=== PATIENT | male | born 1940 | race Caucasian/White ===

== ENCOUNTER 2017-07-03 20:47 | Observation (INO) | payer MEDICARE, OTHER ==
[~2017-07-03] VITALS: Ht 167.6 cm; Wt 67.3 kg
[2017-07-03 20:51] VITALS: BP 144/79
[2017-07-03] MEDS ORDERED: HYDROCHLOROTHIA25 M1 PO (20:59)
[2017-07-03] MEDS ORDERED: LISINOPRIL20 MG PO (21:00)
[2017-07-03] MEDS ORDERED: ATORVASTATIN CA80 MG PO (21:01)
[2017-07-03] MEDS ORDERED: CARVEDILOL 1212.5 MG PO (21:01)
[2017-07-03] MEDS ORDERED: CLOPIDOGREL75 M2 PO (21:01)
[2017-07-03] MEDS ORDERED: DULOXETINE60 MG PO (21:02)
[2017-07-03] MEDS ORDERED: ASPIRIN 81MG TA81 MG PO (21:03)
[2017-07-03] MEDS ORDERED: BUPROPION HCL150 M1 PO (21:03)
--- OUTSIDE RECORDS SUMMARY | 2017-07-03 21:08 | External Medical Summary Rpt ---
Author Author PANTERA Marinelli, [employer] Organization [employer] Address Unknown Phone Unavailable
--- OUTSIDE RECORDS SUMMARY | 2017-07-03 21:08 | External Medical Summary Rpt | CCD ---
Author Author , PANTEAR MOTT Address Unknown Phone [email or web address] Purpose Continuity of Care Document - through 2016
--- OUTSIDE RECORDS SUMMARY | 2017-07-03 21:08 | External Medical Summary Rpt | CCD ---
Author Author [employer] Organization [employer] Address Unknown Phone Unavailable Purpose Continuity of Care Document - through 2016
--- OUTSIDE RECORDS SUMMARY | 2017-07-03 21:08 | External Medical Summary Rpt | CCD ---
Author Author , YENI MOTT Address Unknown Phone [email or web address] Immunization Name Date Rout CVX Reac Dose Comm Prov Is Faci e tion ent ider Refu lity Give sed n Infl 09-2 Intr 999 Hist PD20 No PD20 uenz 3-20 amus oric 255 255 a 17 cula al Quad r Info rmat W/Pr ion es - Sour ce Unsp ecif ied
--- OUTSIDE RECORDS SUMMARY | 2017-07-03 21:08 | External Medical Summary Rpt | CCD ---
Author Author , PANTERA MOTT Address Unknown Phone [email or web address] Purpose Continuity of Care Document - through 2016
--- OUTSIDE RECORDS SUMMARY | 2017-07-03 21:08 | External Medical Summary Rpt | CCD ---
Author Author , YENI MOTT Address Unknown Phone [email or web address] Immunization Name Date Rout CVX Reac Dose Comm Prov Is Faci e tion ent ider Refu lity Give sed n Infl 09-2 Intr 999 Hist PD20 No PD20 uenz 3-20 amus oric 255 255 a 17 cula al Quad r Info rmat W/Pr ion es - Sour ce Unsp ecif ied
[2017-07-03 21:32] LABS: HEMOGLOBIN 15.1 g/dL (14.1-18.0)
[2017-07-03 21:34] LABS: LYMPH # 0.6 K/mm3 (0.7-4.5); LYMPH % 9.4 % (10-50)
[2017-07-03 21:49] LABS: BUN 16 mg/dL (7-18)
[2017-07-03 21:56] LABS: GFR (ESTIMATED) 65 ML/MIN (>60)
--- NOTE | 2017-07-03 22:44 | Emergency Room Report ---
History of Present Illness Time Seen by 2055 Presenting Problem in Triage Pt arrived:Wheelchair Presenting Problem:C/O FLU LIKE SYMPTOMS,WEAKNESS,COUGH AND CONGESTION SINCE THIS AM.STATES HE JUST ISNT HIMSELF. 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 N Clinical Suspician of Infection? Y Mental Status: 1 - Regular (Normal Baseline) Sepsis Risk:Low Sepsis Risk Have you (or family members/close friends) recently traveled outside the [place]? N If Yes, where/when: Have you had exposure to infectious disease within the past month? N TB? Other? 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 over the last 24 hrs with no rash but has unsteady gait and had fall and change in mental status - pt confused - Cardiac Chest Pain Chest pain indicative of cardiac No Timing/Duration this evening Severity moderate ALLERGIES Coded Allergies: No Known Allergies (07/03/17) Home Medications Reported Medications HYDROCHLOROTHIAZIDE (Hydrochlorothiazide) 25 MG PO DAILY #90 Lisinopril 10 MG PO BID #90 Carvedilol (Carvedilol 12.5MG) 12.5 MG PO BID #180 Atorvastatin Calcium 80 MG PO DAILY #90 CLOPIDOGREL BISULFATE (Clopidogrel) 75 MG PO DAILY #90 TAB DULOXETINE HCL (Duloxetine) 60 MG PO DAILY #90 Bupropion Hcl (Bupropion HCl Sr) 150 MG PO DAILY #90 ASPIRIN (Aspirin) 81 MG PO DAILY History Medical History General CAD? No Angina: No MT: No Hypertension? Yes Hyperlipidemia? Yes CHF? No DVT? No PE? No COPD? No Asthma? No Anemia? No GERD? No Gastric ulcers? Yes GI Bleed? No Hernia? Yes Thyroid Problems? No Hypothyroidism? No CVA? Yes Seizures? No Diabetes? No Renal Insuffiency? No End Stage Renal Disease? No UTI? No Stones? No BPH? No GB Disease: No Nephritic Syndrome? No Asplenia? No Hepatitis? No Sickle Cell Disease? No Arthritis? Yes Migraines? No Cataracts? Yes Glaucoma? No MRSA? No HIV? No TB? No Anxiety? No Depression? Yes Cancer? Yes Site: PROSTATE Immunization Hx DT/Tetanus Unknown Surgical Hx Previous Surgery?Y HERNIA REPAIR PROSTATE REMOVAL Social History Smoking Hx Smoker: Former Smoker Tobacco: No Alcohol Alcohol: No Drugs none Review of Systems All Other Systems Reviewed and Negative Constitutional see HPI, denies fever, weakness Eyes denies drainage ENT denies: ear discharge, epistaxis, throat pain. Respiratory denies cough, denies shortness of breath, denies wheezing Cardiovascular denies chest pain, denies palpitations, denies syncope Gastrointestinal denies abdominal pain, denies diarrhea, denies vomiting Genitourinary denies: dysuria, frequency, hesitancy, hematuria. Musculoskeletal denies back pain, denies joint pain, denies joint swelling, denies neck pain Skin denies rash Psychiatric/Neurological see HPI, denies headache, denies seizure, weakness Physical Exam Vital Signs Vital Signs Date Time Temp Pulse Resp B/P Pulse O2 O2 Flow FiO2 Ox Delivery Rate 07/03 2051 99.1 85 20 144/79 97 - WBC >12,000 or <4,000 or 10% bands? 2 or more SIRS Criteria Met? B/P:144/79 MAP:100 Creatinine >2.0? UA output<0.5ml/kg/hr for 2 hrs? Platelet count >100,000? Lactate >2.0mmol/1? INR >1.2 or PTT > than 60 sec? Evidence of Organ Dysfunction? Provider documented clinical suspician of infection? Y Sepsis Criteria Count: 1 Sepsis Risk: Low Sepsis Risk General Appearance no apparent distress Eye Exam - bilateral eye PERRL, bilateral eye EOMI Ear, Nose, Throat normal ENT inspection Neck supple Respiratory Status No: respiratory distress. Lung Sounds bilateral: rhonchi. 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 No Results/Orders Laboratory Tests 07/03/17 2306: Urine Color YELLOW, Urine Appearance CLEAR, Urine pH 6.0, Ur Specific [place] 1.020, Urine Protein NEGATIVE, Urine Ketones TRACE H, Urine Blood 2+ H, Urine Nitrate NEGATIVE, Urine Bilirubin NEGATIVE, Urine Urobilinogen 0.2, Ur Leukocyte Esterase NEGATIVE, Urine RBC 3-5, Urine WBC 3-5, Urine Bacteria 1+, Urine Mucus 1+, Urine Glucose 1+ H 07/03/17 2253: Chlamy pneum (TEM-PCR) Pending, Adenovirus (PCR) Pending, B. pertussis DNA (PCR) Pending, Coronavirus OC43 (PCR) Pending, Coronavirus HKU1 (PCR) Pending, Coronavirus 229E (PCR) Pending, Coronavirus NL63 (PCR) Pending, Human Metapneumovir PCR Pending, Influenza A (H1) PCR Pending, Influ A (H1N1/09) PCR Pending, Influenza A (H3) PCR Pending, Influenza Type A (PCR) Pending, Influenza Type B (PCR) Pending, M. pneumoniae (PCR) Pending, Parainfluenza 1 (PCR) Pending , Parainfluenza 2 (PCR) Pending, Parainfluenza 3 (PCR) Pending, Parainfluenza 4 (PCR) Pending, RSV (PCR) Pending, Entero/Rhino (PCR) Pending 07/03/172116: Influenza Type A Ag NOT DETECTED, Influenza Type B Ag NOT DETECTED 07/03/17 2100: Lactic Acid 1.9 07/03/17 2100: Sodium 133 L, Potassium 3.2 L, Chloride 94 L, Carbon Dioxide 29, BUN 16, Creatinine 1.1, Estimated Creat Clear 54, Estimated GFR (MDRD) 65, Glucose 174 H, Calcium 8.9, Total Bilirubin 0.6, AST 20, ALT 33, Alkaline Phosphatase 86, Creatine Kinase 102, CK-MB (CK-2) Rel Index 0.5, CK and CKMB Interp < 0.5, Troponin I < 0.02, Total Protein 7.2, Albumin 3.6, Globulin 3.6 H, Albumin/ Globulin Ratio 1.0 L, WBC 7.6, RBC 4.85, Hgb 15.1, Hct 45.3, MCV 93.3, RDW 13.0 , Plt Count 195, MPV 7.3 L, Gran % 84.7 H, Gran # 6.4, Lymphocytes % 9.4 L, Monocytes % 4.9, Eosinophils % 0.7, Basophils % 0.4, Lymphocytes # 0.6 L, Monocytes # 0.4, Eosinophils # 0.1, Basophils # 0.0, PUBS MCHC 33.3, MCH 31.1 Current Medication Orders Sig/Kadie Start time Last Medication Dose Route Stop Time Status Admin Sodium Chloride 1,000 ML .STK-MED ONE 07/03 2121 DC IV Sodium Chloride 1,000 ML .Q1H1M 07/03 2115 DC 07/03 IV 07/03 Sodium Chloride 10 ML PRN PRN 07/03 2115 AC IV 07/04 2106 Orders Procedure Date/time Status Decision to admit 07/03 2338 Active UPPER RESPIRATORY PANEL, PCR 07/03 2250 Active ELECTROCARDIOGRAM REQUEST 07/03 2106 Active CHEST-PORTABLE 07/03 2106 Active CULTURE, BLOOD 07/03 2106 Active URINALYSIS/COMPLETE 07/03 2106 Complete LACTIC ACID 07/03 2106 Complete INFLUENZA A&B ANTIGENS 07/03 2106 Complete CBC WITH AUTO DIFF 07/03 2106 Complete CARDIAC ENZYMES 07/03 2106 Complete CHEM 12 PROFILE 07/03 2106 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 ST/Twave chgs XRAY/CT/US XRAY/CT/US XRAY chest XR interpretation by reviewed by me Xray Results normal/NAD Departure Departure Time of Disposition 0 Disposition Still a Patient Clinical Impression Primary Impression: Febrile illness, acute Condition STABLE Referrals Gino Todd MD (Family) discussed with dr todd ED Critical Care Critical Care No at 2342
[2017-07-03 23:01] LABS: CORONAVIRUS 229E NOT DETECTED (NOT DETECTE); CORONAVIRUS HKU 1 NOT DETECTED (NOT DETECTE); CORONAVIRUS NL63 NOT DETECTED (NOT DETECTE); RHINOVIRUS/ENTEROVIRUS NOT DETECTED (NOT DETECTE)
[2017-07-03 23:13] LABS: URINE BILIRUBIN - DIPSTICK NEGATIVE (NEG); URINE BLOOD 2+ (NEG)
--- OUTSIDE RECORDS SUMMARY | 2017-07-03 23:43 | External Medical Summary Rpt | CCD ---
Author Author , PANTERA MOTT Address Unknown Phone [email or web address] Purpose Continuity of Care Document - 07-03-2017 through 2016 Results Labs Lab Lab Date Result Refere Interp Status Commen Order Detail nces retati t Range on Urinalysis with microscopy (07-03-2017 23:06) Urine CLEAR CLEAR complet appeara 017 CLEAR L ed nce 23:06 determi nation Bacteri 1+ 1+ L O complet a 017 ed detecti 23:06 on in urine sedimen t by Urine NEGATIV NEG complet total 017 E ed bilirub 23:06 NEGATIV in E L detecti on by test Urine 2+ 2+ L NEG complet blood 017 ed detecti 23:06 on Urine YELLOW YELLOW complet color 017 YELLOW ed 23:06 L Glucose 1 + NEG complet ur 017 ed test 23:06 strip Urine TRACE NEG complet ketones 017 TRACE L ed 23:06 mg/dL detecti on by automat ed harley Mucus NEGATIV NEG complet detecti 017 E ed on in 23:06 NEGATIV urine E L sedimen t by lig Mucus 1+ 1+ L NONE complet detecti 017 ed on in 23:06 urine sedimen t by lig Urine NEGATIV NEG complet nitrite 017 E ed 23:06 NEGATIV detecti E L on by test strip Urine = 6.0 5.0-8.5 complet pH 017 ed 23:06 Urine = NEG complet protein 017 NEGATIV ed 23:06 E mg/dL measure ment by automat ed t Erythro 3-5 3-5 0 complet cytes 017 L ed detecti 23:06 rbc/hpf on in urine sedimen t Urine = 1.020 1.005-1 complet specifi 017 .030 ed c 23:06 gravity measure ment Urine 0.2 0.2 NEG complet urobili 017 L ed nogen 23:06 E.U./dL detecti on by test str Urine 3 - 5 O complet leukocy 017 wbc/hpf ed harley 23:06 count (number /volume ) Urinalysis dipstick W Reflex Microscopic panel in Urine (07-03-2017 23:06) Bacteri 1+ O complet a 017 ed [Presen 23:06 ce] in Urine sedimen t by Light microsc opy Mucus 1+ NONE complet [Presen 017 ed ce] in 23:06 Urine sedimen t by Light microsc opy Erythro 3-5 0 complet cytes 017 ed [Presen 23:06 ce] in Urine sedimen t by Light microsc opy Leukocy 07-03- 3-5 O complet harley 017 wbc/hpf ed [#/volu 23:06 me] in Urine Urinalysis dipstick W Reflex Microscopic panel in Urine (07-03-2017 23:06) Appeara CLEAR CLEAR complet nce of 017 ed Urine 23:06 Bilirub NEGATIV NEG complet in 017 E ed [Presen 23:06 ce] in Urine by Test strip Erythro 2+ NEG Abnorma complet cytes 017 l ed [Presen 23:06 ce] in Urine Color YELLOW YELLOW complet of 017 ed Urine 23:06 Ketones TRACE NEG Abnorma complet 017 l ed [Presen 23:06 ce] in Urine by Automat ed test strip Mucus NEGATIV NEG complet [Presen 017 E ed ce] in 23:06 Urine sedimen t by Light microsc opy Nitrite NEGATIV NEG complet 017 E ed [Presen 23:06 ce] in Urine by Test strip Urobili 0.2 NEG complet nogen 017 ed [Presen 23:06 ce] in Urine by Test strip Influenza A and B virus antigen assay (07-03-2017 21:17) Influen NOT NOT complet za A ag 017 DETECTE DETECTD ed QL 21:17 D NOT DETECTE D L Influen NOT NOT complet za 017 DETECTE DETECTD ed virus B 21:17 D NOT DETECTE antigen D L detecti on Influenza virus A+B Ag [Presence] in Unspecified specimen (07-03-2017 21:17) Influen NOT NOT complet za 017 DETECTE DETECTD ed virus A 21:17 D Ag [Presen ce] in Unspeci fied specime n Influen NOT NOT complet za 017 DETECTE DETECTD ed virus B 21:17 D Ag [Presen ce] in Unspeci fied specime n CBC w auto diff (07-03-2017 21:00) Automat = 0.0 0-0.2 complet ed 017 K/MM3 ed blood 21:00 basophi l count (count/ vo Baso % = 0.4 % 0.1-2.0 complet 017 ed 21:00 Automat = 0.1 0.0-0.4 complet ed 017 K/mm3 ed blood 21:00 eosinop hil count Automat = 0.7 % 0.1-12. complet ed 017 0 ed blood 21:00 eosinop hils/10 0 leukocy t Blood = 6.4 1.3-8.0 complet granulo 017 K/mm3 ed cytes 21:00 automat ed count (numb Granulo = 84.7 37.0-80 complet cyte 017 % .0 ed percent 21:00 age Blood = 45.3 42.0-52 complet hematoc 017 % .0 ed rit 21:00 (volume fractio n) Blood = 15.1 14.1-18 complet hemoglo 017 g/dL .0 ed bin 21:00 measure ment (mass/v olum Absolut = 0.6 0.7-4.5 complet e 017 K/mm3 ed lymphoc 21:00 yte count Lymphoc = 9.4 % 10-50 complet yte 017 ed count, 21:00 blood, automat ed Mean 11-29-2 = 31.1 27-31.2 complet corpusc 017 pg ed ular 21:00 hemoglo bin (MCH) determ Automat = 33.3 31.8-35 complet ed 017 g/dl .4 ed erythro 21:00 cyte mean corpusc ular h Automat = 93.3 82.2-97 complet ed 017 fl .8 ed erythro 21:00 cyte mean corpusc ular v Absolut = 0.4 0.1-1.0 complet e 017 K/mm3 ed monocyt 21:00 e count Wood % = 4.9 % 1.7-9.3 complet 017 ed 21:00 Automat = 7.3 7.4-10. complet ed 017 fl 4 ed blood 21:00 platele t mean volume shasta Blood = 195 142-424 complet platele 017 K/mm3 ed t count 21:00 Red = 4.85 4.6-6.2 complet blood 017 M/mm3 ed cell 21:00 count Automat = 13.0 11.5-17 complet ed 017 % .5 ed erythro 21:00 cyte distrib ution width Blood = 7.6 4.8-10. complet leukocy 017 K/MM3 8 ed harley 21:00 count (number /volume ) Blood lactic acid measurement (moles/vol (07-03-2017 21:00) Blood = 1.9 0.4-2.0 complet lactic 017 mmol/L ed acid 21:00 measure ment (moles/ vol Cardiac enzymes (07-03-2017 21:00) Serum < 0.5 0.0-3.6 complet or 017 ng/mL ed plasma 21:00 creatin e kinase MB measu Serum = 0.5 0-4.0 complet or 017 U/L ed plasma 21:00 creatin e kinase MB (CK-M Serum = 102 39-308 complet or 017 U/L ed plasma 21:00 creatin e kinase measure m Serum < 0.02 0.00-0. complet or 017 ng/mL 06 ed plasma 21:00 troponi n i.cardi ac measu Comprehensive metabolic panel (07-03-2017 21:00) Serum --2 = 1.0 1.1-1.8 complet or 017 ed plasma 21:00 albumin /globul in mass ra Serum 07-03-2 = 3.6 3.4-5.0 complet or 017 gm/dL ed plasma 21:00 albumin measure ment (mas Serum 07-03-2 = 86 46-116 complet or 017 U/L ed plasma 21:00 alkalin e phospha tase shasta Serum 07-03-2 = 0.6 0.2-1.0 complet or 017 mg/dL ed plasma 21:00 total bilirub in measure m Serum 07-03-2 = 16 7-18 complet or 017 mg/dL ed plasma 21:00 urea nitroge n measure men Serum 07-03-2 = 8.9 8.5-10. complet or 017 mg/dL 1 ed plasma 21:00 calcium measure ment (mas Serum 2 = 94 98-107 complet or 017 mmoL/L ed plasma 21:00 chlorid e measure ment (mo Carbon 07-03-2 = 29 21.0-32 complet dioxide 017 mmoL/L .0 ed 21:00 measure ment Serum 07-03-2 = 1.1 0.70-1. complet or 017 mg/dL 30 ed plasma 21:00 creatin ine measure ment ( Estimat 07-03-2 = 54 50-200 complet ion of 017 ML/MIN ed creatin 21:00 ine renal clearan ce Estimat = 65 >60 complet ed 017 ML/MIN ed glomeru 21:00 lar filtrat ion rate (GF Comment: REFERENCE RANGE: >60 ML/MIN/1.73 SQUARE METERS Comment: If this patient is -Citizen Of [place], then multiply the Comment: result by 1.210. Serum 07-03-2 = 3.6 1.3-3.2 complet globuli 017 gm/dL ed n 21:00 measure ment (mass/v olume) Serum 07-03-2 = 174 74-106 complet or 017 mg/dL ed plasma 21:00 glucose measure ment (mas Serum 07-03-2 = 3.2 3.5-5.1 complet potassi 017 mmoL/L ed um 21:00 measure ment Serum 07-03-2 = 133 136-145 complet sodium 017 mmoL/L ed measure 21:00 ment Serum = 20 15-37 complet or 017 U/L ed plasma 21:00 asparta te aminotr ansfera ALT = 33 12-78 complet (SGPT) 017 U/L ed ser/court 21:00 s Protein = 7.2 6.4-8.2 complet total 017 gm/dL ed ser/court 21:00 s
--- OUTSIDE RECORDS SUMMARY | 2017-07-03 23:43 | External Medical Summary Rpt | CCD ---
Author Author , PANTERA MOTT Address Unknown Phone [email or web address] Purpose Continuity of Care Document - 07-03-2017 [...] 017 K/mm3 ed monocyt 21:00 e count [place] % = 4.9 % 1.7-9.3 complet 017 [...] SQUARE METERS Comment: If this patient is -[place], then multiply the Comment: result by 1.210. [...]
--- OUTSIDE RECORDS SUMMARY | 2017-07-03 23:44 | External Medical Summary Rpt | CCD ---
Author Author , YENI MOTT Address Unknown Phone [email or web address] Immunization Name Date Rout CVX Reac Dose Comm Prov Is Faci e tion ent ider Refu lity Give sed n Infl 09-2 Intr 999 Hist PD20 No PD20 uenz 3-20 amus oric 255 255 a 17 cula al Quad r Info rmat W/Pr ion es - Sour ce Unsp ecif ied
--- OUTSIDE RECORDS SUMMARY | 2017-07-03 23:44 | External Medical Summary Rpt ---
Author Author PANTERA Marinelli, [employer] Organization [employer] Address Unknown Phone Unavailable Results Urinalysis dipstick W Reflex Microscopic panel in Urine Observa Value Referen Units Interpr Notes Date tion ce etation Range Appeara CLEAR CLEAR No No No Jul 03 nce of informa informa informa 2017 Urine tion in tion in tion in 11:06 source source source PM data data data Bacteri 1+ O No No No Jul 03 a informa informa informa 2016 [Presen tion in tion in tion in 11:06 ce] in source source source PM Urine data data data sedimen t by Light microsc opy Bilirub NEGATIV NEG No No No Jul 03 in E informa informa informa 2016 [Presen tion in tion in tion in 11:06 ce] in source source source PM Urine data data data by Test strip Erythro 2+ NEG No Abnorma No Jul 03 cytes informa l informa 2016 [Presen tion in tion in 11:06 ce] in source source PM Urine data data Color YELLOW YELLOW No No No Jul 03 of informa informa informa 2017 Urine tion in tion in tion in 11:06 source source source PM data data data Glucose NEG No High No Jul 03 [Mass/vol informati informati 2017 ume] in on in on in 11:06 PM Urine by source source Test data data strip Ketones TRACE NEG mg/dL Abnorma No Jul 03 l informa 2016 [Presen tion in 11:06 ce] in source PM Urine data by Automat ed test strip Mucus NEGATIV NEG No No No Jul 03 [Presen E informa informa informa 2016 ce] in tion in tion in tion in 11:06 Urine source source source PM sedimen data data data t by Light microsc opy Mucus 1+ NONE No No No Jul 03 [Presen informa informa informa 2016 ce] in tion in tion in tion in 11:06 Urine source source source PM sedimen data data data t by Light microsc opy Nitrite NEGATIV NEG No No No Jul 03 E informa informa informa 2016 [Presen tion in tion in tion in 11:06 ce] in source source source PM Urine data data data by Test strip pH of 5.0 - 8.5 No Normal No Jul 03 Urine informati informati 2017 on in on in 11:06 PM source source data data Protein NEG mg/dL No No Jul 03 [Mass/vol informati informati 2016 ume] in on in on in 11:06 PM Urine by source source Automated data data test strip Erythro 3-5 0 rbc/hpf No No Jul 03 cytes informa informa 2016 [Presen tion in tion in 11:06 ce] in source source PM Urine data data sedimen t by Light microsc opy Specific 1.005 - No Normal No Jul 03 gravity 1.030 informati informati 2016 of Urine on in on in 11:06 PM source source data data Urobili 0.2 NEG E.U./dL No No Jul 03 nogen informa informa 2016 [Presen tion in tion in 11:06 ce] in source source PM Urine data data by Test strip Leukocy [3 O wbc/hpf No No Jul 03 harley wbc/hpf informa informa 2016 [#/volu ; 5 tion in tion in 11:06 me] in wbc/hpf source source PM Urine ] data data Urinalysis dipstick W Reflex Microscopic panel in Urine Observa Value Referen Units Interpr Notes Date tion ce etation Range Appeara CLEAR CLEAR No No No Jul 03 nce of informa informa informa 2016 Urine tion in tion in tion in 11:06 source source source PM data data data Bilirub NEGATIV NEG No No No Jul 03 in E informa informa informa 2016 [Presen tion in tion in tion in 11:06 ce] in source source source PM Urine data data data by Test strip Erythro 2+ NEG No Abnorma No Jul 03 cytes informa l informa 2016 [Presen tion in tion in 11:06 ce] in source source PM Urine data data Color YELLOW YELLOW No No No Jul 03 of informa informa informa 2017 Urine tion in tion in tion in 11:06 source source source PM data data data Glucose NEG No High No Jul 03 [Mass/vol informati informati 2016 ume] in on in on in 11:06 PM Urine by source source Test data data strip Ketones TRACE NEG mg/dL Abnorma No Jul 03 l informa 2017 [Presen tion in 11:06 ce] in source PM Urine data by Automat ed test strip Mucus NEGATIV NEG No No No Jul 03 [Presen E informa informa informa 2016 ce] in tion in tion in tion in 11:06 Urine source source source PM sedimen data data data t by Light microsc opy Nitrite NEGATIV NEG No No No Jul 03 E informa informa informa 2017 [Presen tion in tion in tion in 11:06 ce] in source source source PM Urine data data data by Test strip pH of 5.0 - 8.5 No Normal No Jul 03 Urine informati informati 2017 on in on in 11:06 PM source source data data Protein NEG mg/dL No No Jul 03 [Mass/vol informati informati 2016 ume] in on in on in 11:06 PM Urine by source source Automated data data test strip Specific 1.005 - No Normal No Jul 03 gravity 1.030 informati informati 2017 of Urine on in on in 11:06 PM source source data data Urobili 0.2 NEG E.U./dL No No Jul 03 nogen informa informa 2016 [Presen tion in tion in 11:06 ce] in source source PM Urine data data by Test strip Influenza virus A+B Ag [Presence] in Unspecified specimen Observa Value Referen Units Interpr Notes Date tion ce etation Range Influen NOT NOT No No No Jul 03 za DETECTE DETECTD informa informa informa 2017 virus A D tion in tion in tion in 9:17 PM Ag source source source [Presen data data data ce] in Unspeci fied specime n Influen NOT NOT No No No Jul 03 za DETECTE DETECTD informa informa informa 2017 virus B D tion in tion in tion in 9:17 PM Ag source source source [Presen data data data ce] in Unspeci fied specime n Lactate [Moles/volume] in Blood Observa Value Referen Units Interpr Notes Date tion ce etation Range Lactate 0.4 - 2.0 mmol/L Normal No Jul 03 [Moles/vo informati 2016 9:00 lume] in on in PM Blood source data CBC W Auto Differential panel in Blood Observa Value Referen Units Interpr Notes Date tion ce etation Range Basophils 0 - 0.2 K/MM3 Normal No Jul 03 inform2016 9:00 [#/volume on in PM ] in source Blood by data Automated count Basophils 0.1 - 2.0 % Normal No Jul 03 / informati 2016 9:00 leukocyte on in PM s in source Blood by data Automated count Eosinophi 0.0 - 0.4 K/mm3 Normal No Jul 03 ls informati 2016 9:00 [#/volume on in PM ] in source Blood by data Automated count Eosinophi 0.1 - % Normal No Jul 03 ls/100 12.0 informati 2016 9:00 leukocyte on in PM s in source Blood by data Automated count Granulocy 1.3 - 8.0 K/mm3 Normal No Jul 03 harley informati 2016 9:00 [#/volume on in PM ] in source Blood by data Automated count Granulocy 37.0 - % High No Jul 03 harley/100 80.0 informati 2016 9:00 leukocyte on in PM s in source Blood by data Automated count Hematocri 42.0 - % Normal No Jul 03 t [Volume 52.0 informati 2016 9:00 on in PM Fraction] source of Blood data Hemoglobi 14.1 - g/dL Normal Jul 03 n 18.0 informati 2016 9:00 [Mass/vol on in PM ume] in source Blood data Lymphocyt 0.7 - 4.5 K/mm3 Low No Jul 03 es informati 2016 9:00 [#/volume on in PM ] in source Unspecifi data ed specimen by Automated count Lymphocyt 10 - 50 % Low No Jul 03 es informati 2016 9:00 [#/volume on in PM ] in source Unspecifi data ed specimen by Automated count Erythrocy 27 - 31.2 pg Normal No Jul 03 te mean informati 2016 9:00 corpuscul on in PM ar source hemoglobi data n [Entitic mass] Erythrocy 31.8 - g/dl Normal Jul 03 te mean 35.4 informati 2016 9:00 corpuscul on in PM ar source hemoglobi data n concentra tion [Mass/vol ume] by Automated count Erythrocy 82.2 - fl Normal No Jul 03 te mean 97.8 informati 2016 9:00 corpuscul on in PM ar volume source [Entitic data volume] by Automated count Monocytes 0.1 - 1.0 K/mm3 Normal No Jul 03 inform2016 9:00 [#/volume on in PM ] in source Blood by data Automated count Monocytes 1.7 - 9.3 % Normal No Jul 03 /100 informati 2016 9:00 leukocyte on in PM s in source Blood by data Automated count Platelet 7.4 - fl Low No Jul 03 mean 10.4 informati 2016 9:00 volume on in PM [Entitic source volume] data in Blood by Automated count Platelets 142 - 424 K/mm3 Normal No Jul 03 informati 2016 9:00 [#/volume on in PM ] in source Blood data Erythrocy 4.6 - 6.2 M/mm3 Normal No Jul 03 harley informati 2016 9:00 [#/volume on in PM ] in source Amniotic data fluid Erythrocy 11.5 - % Normal Jul 03 te 17.5 informati 2016 9:00 distribut on in PM ion width source [Entitic data volume] by Automated count Leukocyte 4.8 - K/MM3 Normal No Jul 03 s 10.8 informati 2016 9:00 [#/volume on in PM ] in source Blood data
--- OUTSIDE RECORDS SUMMARY | 2017-07-03 23:44 | External Medical Summary Rpt | CCD ---
Author Author , YENI MOTT Address Unknown Phone [email or web address] Immunization Name Date Rout CVX Reac Dose Comm Prov Is Faci e tion ent ider Refu lity Give sed n Infl 09-2 Intr 999 Hist PD20 No PD20 uenz 3-20 amus oric 255 255 a 17 cula al Quad r Info rmat W/Pr ion es - Sour ce Unsp ecif ied
[2017-07-04 00:30] VITALS: BP 139/73
[2017-07-04 00:36] VITALS: BP 139/73
[2017-07-04 00:47] LABS: CORONAVIRUS OC43 DETECTED (NOT DETECTE)
[2017-07-04 04:30] VITALS: BP 127/76
--- NOTE | 2017-07-04 05:28 | RADIOLOGY REPORT PS360 ---
CHEST-PORTABLE HISTORY: Cough and congestion C/O COUGH AND COMNGESTION ORDERING PHYSICIAN: Gino Cruz MD PATIENT AGE: 76 years COMPARISON: None available FINDINGS: The cardiomediastinal silhouette and pulmonary vascularity are within normal limits. No lobar consolidation or collapse. Mild vascular crowding in the right lung base. There is increased density along the right and left aspect of the mediastinum superior to the aortic arch probably due to summation density from the overlying bony structures. Upright PA and lateral chest suggested for confirmation. No acute bony anomalies. IMPRESSION: No definite acute finding. Please see above for detail. Recommend upright PA and lateral chest due to the density of both right and left aspect of the mediastinum
[2017-07-04 07:22] LABS: LYMPH # 1.4 K/mm3 (0.7-4.5); LYMPH % 19.7 % (10-50)
--- NOTE | 2017-07-04 07:25 | PHARMACY CLINIC NOTE ---
Patient Demographics Patient Demographics Admission date: 07/04/17 Date: 07/04/17 Time: 0724 Allergies Coded Allergies: No Known Allergies (07/03/17) HEIGHT- FT: 5 IN: 6.00 K.331 VTE General Information Labs: Laboratory Tests 07/03 2100 Hematology Hgb (14.1 - 18.0 g/dL) 15.1 Hct (42.0 - 52.0 %) 45.3 Plt Count (142 - 424 K/mm3) 195 Disclaimer The following section includes nursing documentation that has been pulled in for pharmacy review. Patient's VTE score: 3 Patient's VTE Risk: LOW RISK Clinical trial participant? No VTE prophylaxis [id number] VTE prophylaxis ordered? Yes Type of prophylaxis/treatment: JANNA at 0785
[2017-07-04 07:54] VITALS: BP 127/76
[2017-07-04 08:00] VITALS: BP 117/60
--- NOTE | 2017-07-04 08:42 | HISTORY AND PHYSICAL REPORT ---
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 In the ED, he was found to have low grade temps. PCR panel was positive for Loyola Virus. PCXR showed a possible density, with recommendation for PA & Lateral views to further evaluate. reports son and grandchildren had similar symptoms around [facility]. further reports ongoing history of LE weakness, frequent falls and intermittent confusion. He has been to [facility] and PT/OT with little improvement of strength. Patient was admitted to acute care for further evaluation. Past medical history: Family HX Diabetes No CAD No Hypertension Yes Hyperlipidemia Yes Cancer Yes TB No Immunization HX DT/Tetanus Unknown Flu 2017-SN Pneumonia [id number] TB Test in last year No General CAD? No Angina: No SD: No Hypertension? Yes Hyperlipidemia? Yes CHF? No DVT? No PE? No COPD? No Asthma? No Anemia? No GERD? No Gastric ulcers? Yes GI Bleed? No Hernia? Yes Thyroid Problems? No Hypothyroidism? No CVA? Yes Seizures? No Diabetes? No Renal Insuffiency? No UTI? No Stones? No BPH? No GB Disease: No Nephritic Syndrome? No Asplenia? No Hepatitis? No Sickle Cell Disease? No Arthritis? Yes Migraines? No Cataracts? Yes Glaucoma? No MRSA? No HIV? No TB? No Anxiety? No Depression? Yes Cancer? Yes Site: PROSTATE Past Surgical HX Previous Surgery?Y HERNIA REPAIR PROSTATE REMOVAL Current home meds: Reported Medications HYDROCHLOROTHIAZIDE (Hydrochlorothiazide) 25 MG PO DAILY #90 Lisinopril 10 MG PO BID #90 Carvedilol (Carvedilol 12.5MG) 12.5 MG PO BID #180 Atorvastatin Calcium 80 MG PO DAILY #90 CLOPIDOGREL BISULFATE (Clopidogrel) 75 MG PO DAILY #90 TAB DULOXETINE HCL (Duloxetine) 60 MG PO DAILY #90 Bupropion Hcl (Bupropion HCl Sr) 150 MG PO DAILY #90 ASPIRIN (Aspirin) 81 MG PO DAILY Social Hx: Smoking HX Tobacco No Are you/the child exposed to second-hand smoke: No Alcohol Alcohol: No Hx of Drug Use Drug Use? No Patien't marital status is Patient's support system is good Review of systems: Constitutional fever, weakness. No: chills, diaphoresis, malaise. Eyes No: no symptoms reported. Ears, Nose, Mouth, Throat No ear pain, No ear discharge, No nose pain, nose discharge, nose congestion, No epistaxis, No mouth pain, No throat pain, No throat swelling Respiratory cough. No: orthopnea, shortness of breath, stridor, wheezing. Cardiovascular No no symptoms reported Gastrointestinal/Abdominal No no symptoms reported Genitourinary No: no symptoms reported. Musculoskeletal No: no symptoms reported. Skin No: no symptoms reported. Neurological No: no symptoms reported. Psychiatric No: no symptoms reported. Exam: Lab data for last 24 hours: Laboratory Tests 07/04/17 0615: Sodium 133 L, Potassium 3.3 L, Chloride 98, Carbon Dioxide 29, BUN 11, Creatinine 0.8, Estimated Creat Clear 74, Estimated GFR (MDRD) 94, Glucose 104, Calcium 8.6, WBC 7.0, RBC 4.24 L, Hgb 13.0 L, Hct 39.0 L, MCV 91.9, RDW 13.2, Plt Count 153, MPV 7.2 L, Gran % 73.1, Gran # 5.1, Lymphocytes % 19.7, Monocytes % 6.0, Eosinophils % 0.8, Basophils % 0.3, Lymphocytes # 1.4, Monocytes # 0.4, Eosinophils # 0.1, Basophils # 0.0, PUBS MCHC 33.3, MCH 30.6 07/03/17 2306: Urine Color YELLOW, Urine Appearance CLEAR, Urine pH 6.0, Ur Specific Deshler 1.020, Urine Protein NEGATIVE, Urine Ketones TRACE H, Urine Blood 2+ H, Urine Nitrate NEGATIVE, Urine Bilirubin NEGATIVE, Urine Urobilinogen 0.2, Ur Leukocyte Esterase NEGATIVE, Urine RBC 3-5, Urine WBC 3-5, Urine Bacteria 1+, Urine Mucus 1+, Urine Glucose 1+ H 07/03/17 2253: Chlamy pneum (TEM-PCR) NOT DETECTED, Adenovirus (PCR) NOT DETECTED, B. pertussis DNA (PCR) NOT DETECTED, Coronavirus OC43 (PCR) DETECTED H, Coronavirus HKU1 ( PCR) NOT DETECTED, Coronavirus 229E (PCR) NOT DETECTED, Coronavirus NL63 (PCR) NOT DETECTED, Human Metapneumovir PCR NOT DETECTED, Influenza A (H1) PCR NOT DETECTED, Influ A (H1N1/09) PCR NOT DETECTED, Influenza A (H3) PCR NOT DETECTED, Influenza Type A (PCR) NOT DETECTED, Influenza Type B (PCR) NOT DETECTED, M. pneumoniae (PCR) NOT DETECTED, Parainfluenza 1 (PCR) NOT DETECTED, Parainfluenza 2 (PCR) NOT DETECTED, Parainfluenza 3 (PCR) NOT DETECTED, Parainfluenza 4 (PCR) NOT DETECTED, RSV (PCR) NOT DETECTED, Entero/Rhino (PCR) NOT DETECTED 07/03/172116: Influenza Type A Ag NOT DETECTED, Influenza Type B Ag NOT DETECTED 07/03/172099: Lactic Acid 1.9 07/03/17 2100: Sodium 133 L, Potassium 3.2 L, Chloride 94 L, Carbon Dioxide 29, BUN 16, Creatinine 1.1, Estimated Creat Clear 54, Estimated GFR (MDRD) 65, Glucose 174 H, Calcium 8.9, Total Bilirubin 0.6, AST 20, ALT 33, Alkaline Phosphatase 86, Creatine Kinase 102, CK-MB (CK-2) Rel Index 0.5, CK and CKMB Interp < 0.5, Troponin I < 0.02, Total Protein 7.2, Albumin 3.6, Globulin 3.6 H, Albumin/ Globulin Ratio 1.0 L, WBC 7.6, RBC 4.85, Hgb 15.1, Hct 45.3, MCV 93.3, RDW 13.0 , Plt Count 195, MPV 7.3 L, Gran % 84.7 H, Gran # 6.4, Lymphocytes % 9.4 L, Monocytes % 4.9, Eosinophils % 0.7, Basophils % 0.4, Lymphocytes # 0.6 L, Monocytes # 0.4, Eosinophils # 0.1, Basophils # 0.0, PUBS MCHC 33.3, MCH 31.1 Microbiology 07/03 2100 BLOOD: Anaerobic Blood Culture - RECD 07/03 2100 BLOOD: Aerobic Blood Culture - RECD 07/03 2100 BLOOD: Anaerobic Blood Culture - RECD 07/03 2100 BLOOD: Aerobic Blood Culture - RECD Admission vital signs: 1ST Vital Signs Result Date Time Pulse Ox 97 07/03 2051 B/P 144/79 07/03 2051 Temp 99.1 07/03 2051 Pulse 85 07/03 2051 Resp 20 07/03 2051 O2 Delivery ROOM AIR 07/04 0030 Exam General appearance: alert, active, awake Eyes: anicteric ENT: mucous membranes moist, nose congested Neck: No LAD Cardiovascular: regular rate & rhythm, no murmur, normal peripheral pulses, no peripheral edema Respiratory: wheezes with loose rhonchi right upper and middle lobes ABD: non-distended, normal bowel sounds, no rebound, soft, no tenderness, no guarding, no organomegaly Genitourinary: no dysuria, no hematuria Extremities: moves all Musculoskeletal: equal muscle strength Skin: dry, intact Neuro: alert, no deficit, normal mood/affect, oriented (some confusion noted) , speech clear Plan: Problem List 1. Febrile illness, acute Assessment/Plan Symptoms are likely related to Loyola Virus. Will obtain CXR with PA and Lateral views to evaluate for pneumonia. Will consider discharge later this afternoon pending CXR results. 2. Viral URI Plan: See above at 0841
--- NOTE | 2017-07-04 13:07 | RADIOLOGY REPORT PS360 ---
CHEST(2 VIEWS-NOT PORTABLE) HISTORY: Coughing congestion, abnormal portable chest x-ray density on PCXR ORDERING PHYSICIAN: Gino Cruz MD PATIENT AGE: 76 years COMPARISON: 07/03/2017 FINDINGS: The cardiomediastinal silhouette and pulmonary vascularity are within normal limits. Density noted on the portable chest radiograph the mediastinum is felt to be due to vascular ectasia and not a mediastinal mass.. Probable breast attenuation artifact of the lower chest on both sides. No lobar consolidation or collapse.. Degenerative change thoracic spine. IMPRESSION: No acute finding
[2017-07-04] MEDS ORDERED: TESSALON PERLE100 M1 PO (13:37)
--- NOTE | 2017-07-04 13:41 | DISCHARGE SUMMARY STANDARD ---
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 In the ED, he was found to have low grade temps. PCR panel was positive for Loyola Virus. PCXR showed a possible density, with recommendation for PA & Lateral views to further evaluate. reports [facility] further reports ongoing history of LE weakness, frequent falls and intermittent confusion. He has been to [facility] and PT/OT with little improvement of strength. Patient was admitted to acute care for further evaluation. Hospital Course Hospital Course: Patient was admitted to acute care for observation. PCR was positive for Loyola Virus. CXR PA/LAT was obtained which showed no acute pathology. He is tolerating oral intake well with no further fevers. He is feeling better and wants to go home. Weakness is a chronic ongoing issue that can be addressed outpatient. Discharge home. FU with Dr. Cruz in 5 days. Discharge diagnoses Problem List 1. Febrile illness, acute 2. Viral URI Medications Medications: Discharge meds are as noted. Follow up Follow up in office in: 5 DAYS with: Gino Cruz MD at 1340
[2017-07-04 13:58] VITALS: BP 117/60
== END 2017-07-04 14:25 | disposition home or self-care (01) ==
LOC: ER 20:47 → 2ND 23:41 → ER 23:41 → 2ND 07-04 00:16
PROVIDERS: Emergency Medicine
DX: J06.9 Acute upper respiratory infection, unspecified (principal); B97.29 Other coronavirus as the cause of diseases classified elsewhere; I10 Essential (primary) hypertension; E78.5 Hyperlipidemia, unspecified; Z86.73 Personal history of transient ischemic attack (TIA), and cerebral infarction without residual deficits; Z80.9 Family history of malignant neoplasm, unspecified; Z82.49 Family history of ischemic heart disease and other diseases of the circulatory system; Z79.02 Long term (current) use of antithrombotics/antiplatelets; Z79.82 Long term (current) use of aspirin; Z79.899 Other long term (current) drug therapy; Z85.46 Personal history of malignant neoplasm of prostate; Z23 Encounter for immunization
CPT/HCPCS: G0378